=== PATIENT | male | born 1990 | race African-American/Black ===

== ENCOUNTER 2020-07-27 14:34 | Emergency (ER) | payer OTHER ==
[~2020-07-27] VITALS: Ht 177.8 cm; Wt 73.0 kg
[2020-07-27] MEDS ORDERED: ALBUTEROL (0.5%) 2.5MG/0.5ML NEB HHN ONE (15:00)
[2020-07-27] MEDS ORDERED: ALBU6.7H9 INH (15:04)
[2020-07-27] MEDS ORDERED: P20 PO (15:08)
[2020-07-27] MEDS ORDERED: PREDNISONE 20MG TABLET PO ONE (15:15)
[2020-07-27 16:19] VITALS: BP 113/65
== END 2020-07-27 16:19 ==
LOC: ER 14:43
DX: J45.901 Unspecified asthma with (acute) exacerbation (principal); Z02.89 Encounter for other administrative examinations
CPT/HCPCS: 94640; 99283; J7512; Z7610